=== PATIENT | female | born 1965 | race Caucasian/White ===

== ENCOUNTER 2023-08-29 06:58 | Emergency (ER) | payer BC | END 2023-08-29 08:37 | disposition home or self-care (01) | LOC: JD.ED 06:58 | DX: K59.03 Drug induced constipation (principal); I10 Essential (primary) hypertension; E78.00 Pure hypercholesterolemia, unspecified; E66.9 Obesity, unspecified; J45.909 Unspecified asthma, uncomplicated; Z79.899 Other long term (current) drug therapy; Z88.8 Allergy status to other drugs, medicaments and biological substances; Z68.39 Body mass index [BMI] 39.0-39.9, adult | CPT/HCPCS: 74019; 74019-26; 99283 ==

== ENCOUNTER 2024-09-18 04:06 | Day surgery (SDC) | payer BC ==
[2024-09-18] MEDS ORDERED: Naloxone 0.4 MG/ML SDV IVPUSH PRN ×2 (04:42→07:36)
[2024-09-18] MEDS: Morphine 4 MG/ML Syringe IVPUSH ONE (04:50)
[2024-09-18] MEDS: Sodium Chloride 0.9% 10 ML Syringe FLUSH ONE (04:50)
[2024-09-18] MEDS: Sodium Chloride 0.9% 10 ML Syringe FLUSH PRN (04:50)
[2024-09-18] MEDS: Ondansetron 4 MG/2 ML SDV IVPUSH ONE (04:50)
[2024-09-18] MEDS: Iopamidol 612 MG/ML 100 ML Bottle IVPUSH ONE (05:12)
[2024-09-18] MEDS: Iopamidol 612 MG/ML 30 ML SDV IVPUSH ONE (05:13)
[2024-09-18 05:25] LABS: A/G RATIO 1.1 (1-2); ALBUMIN 4.2 g/dl (3.4-5.0); ANION GAP 16.8 (5-15); BILIRUBIN TOTAL 0.5 mg/dL (0.2-1.0); BUN/CREATININE RATIO 11.1 (14-18); CALCIUM 9.7 mg/dL (8.5-10.1); CREATININE 0.9 mg/dL (0.55-1.02); EST CRCL DRUG DOSING (CG) 64.64 mL/min; POTASSIUM,K 3.8 mEq/L (3.5-5.1); PROTEIN TOTAL,TP 8.1 g/dl (6.4-8.2)
[2024-09-18 05:27] LABS: LACTIC ACID 1.8 mmol/L (0.4-2.0)
[2024-09-18 05:31] LABS: BASOPHILS PERCENT AUTO 0.2 % (0.0-1.0); HEMATOCRIT 44.2 % (37.0-47.0); HEMOGLOBIN 14.2 gm/dl (12.0-16.0); IMMATURE GRAN ABSOLUTE AUTO 0.06 K/mm3 (0.00-0.05); IMMATURE GRAN PERCENT AUTO 0.4 % (0.0-0.4); LYMPHOCYTES ABSOLUTE AUTO 0.6 K/mm3 (1.0-4.8); LYMPHOCYTES PERCENT AUTO 3.8 % (24.0-44.0); MEAN CORPUSCULAR HEMOGLOBIN 27.1 pg (28.0-32.0); MEAN CORPUSCULAR HGB CONC 32.1 g/dl (32.0-36.0); MEAN CORPUSCULAR VOLUME 84.4 fl (83.0-99.0); MEAN PLATELET VOLUME 10.3 fl (9.4-12.3); MONOCYTES ABSOLUTE AUTO 0.3 K/mm3 (0.0-0.8); MONOCYTES PERCENT AUTO 1.9 % (0.0-8.0); NEUTROPHILS ABSOLUTE AUTO 14.1 K/mm3 (1.8-7.7); NEUTROPHILS PERCENT AUTO 93.7 % (41.0-71.0); PLATELET COUNT,PLT 342 K/mm3 (150-400); RED BLOOD CELL COUNT 5.24 M/mm3 (4.10-5.30); WHITE BLOOD CELL COUNT,WBC 15.04 K/mm3 (3.9-11.3)
[2024-09-18 06:19] LABS: SLIDE REVIEW ABNORMAL SMEAR
[2024-09-18] MEDS: Alum Hydrox/Mag Hydrox/Simeth 30 ML, Lidocaine 2% 15 ML PO ONE (06:24)
[2024-09-18] MEDS: HYDROmorphone 0.5 MG/0.5 ML Syringe IVPUSH ONE (07:50)
[2024-09-18] MEDS: Pantoprazole 40 MG Vial IVPUSH ONE (09:12)
[2024-09-18] MEDS: HYDROmorphone 0.5 MG/0.5 ML Syringe IVPUSH PRN (09:21)
[2024-09-18] MEDS ORDERED: Propofol 200 MG/20 ML SDV ONE (11:58)
[2024-09-18] MEDS ORDERED: fentaNYL 250 MCG/5 ML SDV ONE (11:58)
[2024-09-18] MEDS: Sodium Chloride 0.9% 1,000 ML IV ONE (12:11)
[2024-09-18] MEDS ORDERED: Midazolam 1 MG/ML 2 ML SDV ONE (12:12)
[2024-09-18] MEDS: cefOXitin 2 GM in Water For Injection, Sterile 20 ML IV ONE (12:51)
[2024-09-18] MEDS ORDERED: HYDROmorphone 0.5 MG/0.5 ML Syringe ONE (12:53)
[2024-09-18] MEDS: cefOXitin 2 GM in Premix Bag 1 BAG IV ONE (12:55)
[2024-09-18] MEDS ORDERED: Lactated Ringers 1,000 ML IV ONE (13:08)
[2024-09-18] MEDS ORDERED: Ondansetron 4 MG/2 ML SDV ONE ×2 (13:15)
[2024-09-18] MEDS ORDERED: ceFAZolin 2 GM Vial ONE (13:15)
[2024-09-18] MEDS ORDERED: Rocuronium 50 MG/5 ML Vial ONE (13:15)
[2024-09-18] MEDS ORDERED: Ketorolac 30 MG/ML SDV ONE (13:15)
[2024-09-18] MEDS ORDERED: Sugammadex Sodium 200 MG/2 ML VIAL IV ONE (13:23)
[2024-09-18] MEDS: Lidocaine 1% with EPINEPHrine 1:100,000 20 ML MDV ONE (13:55)
[2024-09-18] MEDS: Bupivacaine 0.5% 30 ML SDV ONE (13:55)
[2024-09-18] MEDS: EPINEPHrine 1 MG/ML SDV ONE (13:55)
[2024-09-18] MEDS: Acetaminophen/oxyCODONE 325-5 MG Tab PO ONE (16:45)
== END 2024-09-18 16:45 | disposition home or self-care (01) ==
LOC: JD.ED 04:06 → JD.SDS 13:07
PROVIDERS: ATTEND Surgery
DX: K80.00 Calculus of gallbladder with acute cholecystitis without obstruction (principal); K82.A1 Gangrene of gallbladder in cholecystitis; I10 Essential (primary) hypertension; J45.909 Unspecified asthma, uncomplicated; E78.00 Pure hypercholesterolemia, unspecified; Z79.899 Other long term (current) drug therapy; Z88.8 Allergy status to other drugs, medicaments and biological substances
CPT/HCPCS: 00790; 36415; 74177; 74177-26; 76705; 76705-26; 80053; 83605; 83690; 84484; 85025; 93005; 93010; 96361; 96374; 96375; 96376; 99284; 99285-25; A9270-GY; J0171; J0665; J0690; J0694; J1885; J2250; J2270; J2405; J2470; J2704; J3010; J3490; J7030; J7120; Q9967